=== PATIENT | male | born 1975 | race Caucasian/White ===

== ENCOUNTER 2022-05-23 21:04 | Emergency (ER) | payer BC ==
[~2022-05-23] VITALS: Ht 177.8 cm; Wt 132.3 kg
[~2022-05-23 21:04] MED LIST: LEVAQUIN 750MG750 MG PO; LORTAB 5/500 501 TAB PO; NO HOME MEDICATIONS
[2022-05-23 21:08] VITALS: TEMP 98.2
[2022-05-23 21:18] LABS: BASO % 0.3 % (0.0-2.0); EOS # 0.1 K/mm3 (0.0-0.7); EOS % 1.1 % (0.0-4.0); GRAN # 5.1 K/mm3 (1.4-6.5); GRAN % 57.3 % (42.2-75.2); HEMATOCRIT 46.4 % (42.0-52.0); HEMOGLOBIN 15.4 g/dl (13.5-18.0); LYMPH # 2.7 K/mm3 (1.2-3.4); LYMPH % 30.4 % (20.0-51.0); MEAN CELL VOLUME 87 fl (80.0-100.0); MEAN CORPUSCULAR HEMOGLOBIN 29 pg (27-31); MEAN CORPUSCULAR HGB CONC 33 g/dl (33.0-37.0); MEAN PLATELET VOLUME 10.8 fl (7.4-10.4); MONO # 0.9 K/mm3 (0.1-0.6); MONO % 10.5 % (1.7-9.3); PLATELET COUNT 197 K/mm3 (130-400); RED BLOOD COUNT 5.32 M/mm3 (4.20-5.60); REDCELL DISTRIBUTION WIDTH-CV 12.3 % (11.5-14.5)
[2022-05-23 21:35] LABS: ALBUMIN 3.6 gm/dL (3.5-5.0); ANION GAP 11 mmol/L (7-16); BLOOD UREA NITROGEN 10 mg/dL (9-21); CALCIUM 9.4 mg/dL (8.4-10.2); CARBON DIOXIDE 24 mmol/L (22-29); CHLORIDE 106 mmol/L (98-107); GLUCOSE 103 mg/dL (70-99); MAGNESIUM 1.8 mg/dL (1.6-2.6); PHOSPHOROUS 2.5 mg/dL (2.3-4.7); POTASSIUM 3.8 mmol/L (3.5-4.5); SODIUM 141 mmol/L (136-145)
[2022-05-23 21:42] LABS: TROPONIN-I < 0.010 ng/mL (0.00-0.033)
[2022-05-23] MEDS ORDERED: ELIQUIS 5MG PO (22:24)
[2022-05-23 22:39] VITALS: BP 133/89; PULSE 94
== END 2022-05-23 22:39 | disposition home or self-care (01) ==
LOC: COL.ER 21:04
PROVIDERS: Emergency Medicine
DX: I26.99 Other pulmonary embolism without acute cor pulmonale (principal); Z28.311 Partially vaccinated for COVID-19
CPT/HCPCS: J7120; Q9967